=== PATIENT | female | born 1950 | race Caucasian/White ===

== ENCOUNTER 2017-10-11 12:17 | Emergency (ER) | payer OTHER, MEDICARE ==
--- NOTE | 2017-10-11 12:48 | EDPHY ---
H & P Smoking Status: Never smoked <Rika Cortés S - Last Filed: 10/11/17 14:55> <Jose Antonio Pennington E - Last Filed: 10/11/17 16:39> Time Seen by Provider: 10/11/17 12:36 HPI/ROS: CHIEF COMPLAINT: Bilateral leg pain and swelling HISTORY OF PRESENT ILLNESS: Patient is a 67-year-old female with a history of asthma, pneumonia and diverticulitis who presents emergency department with bilateral leg swelling and pain. Patient was diagnosed with diverticulitis 2 weeks ago while in [place]. She is currently moving from [place] back to [place]. She was started on Levaquin and Flagyl. She been taking this as directed tell she was seen by her primary care physician last Monday. She is complaining of mild abdominal discomfort. The Levaquin was discontinued and she was started on ciprofloxacin. She states that she did not tolerate this ciprofloxacin well. She had increased abdominal discomfort and bloating. She discontinue the medicines on Monday after 10 day course. Patient states that she developed bilateral feet and leg swelling last night. She states they are still mildly swollen but much improved. She has aches in both for upper extremities and both for legs. She reports having following neuropathy but this feels different. She has no chest pain or shortness of breath. No history of cardiac disease. No fevers or chills. No other rash. No discomfort in her mouth or pharynx. No visual change. REVIEW OF SYSTEMS: My complete review of systems is negative except as mentioned in the HPI. ( Rika Cortés) Past Medical/Surgical History: Includes asthma, pneumonia, diverticulitis (Rika Cortés S) Physical Exam: 37.2, 131/74, 77, 91% on room air GENERAL: Well-appearing, in no acute distress, alert. HEENT: Eyes normal to inspection, normal pharynx, no signs of dehydration. NECK: [No thyromegaly, no lymphadenopathy, supple. RESPIRATORY: Clear to auscultation bilaterally, no rales, rhonchi or wheezing. Normal CVS: Regular rate and rhythm, no rubs, murmurs, or gallops. Normal ABDOMEN: Soft, nontender, nondistended, no organomegaly. Benign BACK: Normal to inspection, no CVA tenderness. SKIN: Normal color, no rash, warm, dry. No pallor. EXTREMITIES: Mild bilateral pedal edema, diffuse lower extremity tenderness, no Homans sign or cords, no joint swelling. NEURO/PSYCH: Alert and oriented, normal mood and affect, normal motor sensory exam. (Rika Cortés S) Constitutional: Initial Vital Signs Temperature (C) 37.2 C 10/11/17 12:27 Heart Rate 77 10/11/17 12:27 Respiratory Rate 18 10/11/17 12:27 Blood Pressure 131/74 H 10/11/17 12:27 O2 Sat (%) 91 L 10/11/17 12:27 O2 Delivery Mode Nasal Cannula O2 (L/minute) 2 Allergies/Adverse Reactions: Penicillins Allergy (Intermediate, Verified 06/21/15 08:49) rash hives codeine [Codeine] Adverse Reaction (Intermediate, Verified 06/21/15 08:49) nausea oxycodone HCl [From Percocet] Adverse Reaction (Intermediate, Verified 06/21/15 08:49) nausea Home Medications: Medication Instructions Recorded Spiriva Inhaler (RX) 02/24/14 Dulera 100 Mcg/5 Mcg Inhaler 06/26/14 Proair Hfa Icu (RX) 06/26/14 Bentyl 10 MG (*) 10/11/17 Flagyl 10/11/17 Levofloxacin 10/11/17 Zofran 10/11/17 Medical Decision Making <MooRika S - Last Filed: 10/11/17 14:55> - Diagnostics Imaging: Discussed imaging studies w/ train caller Radiologist <Jose Antonio Pennington E - Last Filed: 10/11/17 16:39> - Diagnostics Imaging Results: Imaging Impressions Chest X-Ray 10/11/17 12:44 Impression: Hyperexpanded lungs consistent with COPD. Extremity Venous Study 10/11/17 14:52 Impression: No deep venous thrombosis in the right and left lower extremity. These findings were communicated by secured text message with Dr. Jose Antonio Pennington at 16:06 hour, 10/11/2017. ED Course/Re-evaluation: In the emergency department I discussed possible etiologies with the patient. I answered all her questions. IV was placed. Laboratory studies were obtained. Patient had EKG and chest x-ray ordered. Because the patient had recent travel from [place] ultrasound of her bilateral lower extremities was ordered. EKG shows normal sinus rhythm, normal rate, normal axis, normal intervals. There are no ST or T-wave abnormalities. EKG is normal as interpreted by me. The patient's CBC and chemistry unremarkable. Troponin and BNP were negative. 14 50: I rechecked the patient. She was lying comfortably in the bed. She had no new swelling of her lower extremities. 1500: Patient is signed out at change of shift to Dr. Pennington. Patient is awaiting ultrasound of her bilateral lower extremities. If her ultrasound is negative, I recommend the patient be discharged. Patient is aware the plan. I answered all her questions. She will follow up with primary care physician. ( Rika Cortés) 4:15 p.m. the patient is feeling well. Her leg exam is normal to me. She is ambulating. She has some dryness and peeling to her feet which she thinks is related to the swelling she had will taking Cipro. She also states that she had been in the sun in [place] and may be from that. She appears slightly dehydrated. We offered fluids but she prefers to go home and take p.o. Fluids. She declines any further treatment or testing. We discussed indications for returning. Patient did have a slightly low oxygen anyone point Emergency Department. She states that she is prescribed oxygen to wear while in [place] but does not need a while she is in [place]. She does not feel short of breath. She denies chest pain. (Jose Antonio Pennington) Differential Diagnosis: My differential includes but is not limited to DVT, CHF, medication reaction, Luciano-Freddy syndrome, neuropathy, cellulitis, arterial occlusion I feel is unlikely the patient has bilateral lower extremity DVT simultaneously. However, ultrasound is pending. The patient will follow up with the primary care physician to re-evaluate her abdomen after she has been off of her antibiotics. This could be secondary to antibiotic reaction. There is also possibility she could have resistant C diff infection. At this time she does not apparently ill or toxic. Her abdomen is completely benign. ( Rika Cortés) - Data Points Laboratory Results: Laboratory Results 10/11/17 13:25 10/11/17 13:25 10/11/17 10/11/17 10/11/17 14:54 13:25 13:25 WBC 8.24 10^3/uL 10^3/uL (3.80-9.50) RBC 4.99 10^6/uL 10^6/uL (4.18-5.33) Hgb 11.8 g/dL L g/dL (12.6-16.3) Hct 37.1 % L % (38.0-47.0) MCV 74.3 fL L fL (81.5-99.8) MCH 23.6 pg L pg (27.9-34.1) MCHC 31.8 g/dL L g/dL (32.4-36.7) RDW 15.9 % H % (11.5-15.2) Plt Count 486 10^3/uL H 10^3/uL (150-400) MPV 11.1 fL fL (8.7-11.7) Neut % (Auto) 56.6 % % (39.3-74.2) Lymph % (Auto) 27.2 % % (15.0-45.0) [place] % (Auto) 12.9 % % (4.5-13.0) Eos % (Auto) 1.9 % % (0.6-7.6) Baso % (Auto) 1.0 % % (0.3-1.7) Nucleat RBC Rel Count 0.2 % % (0.0-0.2) Absolute Neuts (auto) 4.67 10^3/uL 10^3/uL (1.70-6.50) Absolute Lymphs (auto) 2.24 10^3/uL 10^3/uL (1.00-3.00) Absolute Monos (auto) 1.06 10^3/uL H 10^3/uL (0.30-0.80) Absolute Eos (auto) 0.16 10^3/uL 10^3/uL (0.03-0.40) Absolute Basos (auto) 0.08 10^3/uL 10^3/uL (0.02-0.10) Absolute Nucleated RBC 0.02 10^3/uL H 10^3/uL (0-0.01) Immature Gran % 0.4 % % (0.0-1.1) Immature Gran # 0.03 10^3/uL 10^3/uL (0.00-0.10) Sodium 144 mEq/L mEq/L (135-145) Potassium 4.0 mEq/L mEq/L (3.5-5.2) Chloride 103 mEq/L mEq/L (97-110) Carbon Dioxide 30 mEq/l mEq/l (22-31) Anion Gap 11 mEq/L mEq/L (8-16) BUN 11 mg/dL mg/dL (7-23) Creatinine 0.6 mg/dL mg/dL (0.6-1.0) Estimated GFR > 60 Glucose 82 mg/dL mg/dL (70-100) Calcium 9.1 mg/dL mg/dL (8.5-10.4) Total Bilirubin 0.5 mg/dL mg/dL (0.1-1.4) Conjugated Bilirubin 0.4 mg/dL mg/dL (0.0-0.5) Unconjugated Bilirubin 0.1 mg/dL mg/dL (0.0-1.1) AST 38 IU/L IU/L (14-46) ALT 33 IU/L IU/L (9-52) Alkaline Phosphatase 101 IU/L IU/L (38-126) Troponin I < 0.012 ng/mL ng/mL (0.000-0.034) NT-Pro-B Natriuret Pep 332 pg/mL H pg/mL (0-125) Total Protein 6.8 g/dL g/dL (6.3-8.2) Albumin 3.7 g/dL g/dL (3.5-5.0) Lipase 119 IU/L IU/L (23-300) Urine Color DANYELLE Urine Appearance TURBID Urine pH 7.0 (5.0-7.5) Ur Specific [place] 1.015 (1.002-1.030) Urine Protein NEGATIVE (NEGATIVE) Urine Ketones TRACE H (NEGATIVE) Urine Blood NEGATIVE (NEGATIVE) Urine Nitrate NEGATIVE (NEGATIVE) Urine Bilirubin NEGATIVE (NEGATIVE) Urine Urobilinogen 2.0 EU H EU (0.2-1.0) Ur Leukocyte Esterase NEGATIVE (NEGATIVE) Urine RBC NONE SEEN /hpf /hpf (0-3) Urine WBC 1-3 /hpf /hpf (0-3) Ur Epithelial Cells TRACE /lpf /lpf (NONE-1+) Amorphous Sediment PRESENT /hpf /hpf (NONE-1+) Urine Mucus TRACE /lpf /lpf (NONE-1+) Urine Glucose NEGATIVE (NEGATIVE) Departure <Rika Cortés S - Last Filed: 10/11/17 14:55> <Jose Antonio Pennington E - Last Filed: 10/11/17 16:39> - Departure Disposition: Home, Routine, Self-Care Clinical Impression: Bilateral lower extremity pain Condition: Good Instructions: Leg Edema (ED) Additional Instructions: You need close follow-up with your primary care physician. Return with increasing abdominal pain, recurrent diarrhea or vomiting, fever or any other concerns. Referrals: Connie Guzmán MD [Primary Care Provider] - 2-3 days without fail
--- NOTE | 2017-10-11 13:13 | CPEKG ---
Heart Rate: 70 RR Interval: 857 P-R Interval: 132 QRSD Interval: 96 QT Interval: 404 QTC Interval: 436 P [place]: 59 QRS [place]: 57 T Wave [place]: 58 EKG Severity - NORMAL ECG - EKG Impression: SINUS RHYTHM Electronically Signed By: Rika Cortés 11-Oct-2017 15:02:02
[2017-10-11 13:38] LABS: PLATELET COUNT 486 10^3/uL (150-400)
[2017-10-11] MEDS ORDERED: ACETAMINOPHEN 325 MG TAB PO ONE (16:37)
[2017-10-11 16:45] VITALS: BP 132/75
== END 2017-10-11 16:45 | disposition home or self-care (01) ==
DX: M79.604 Pain in right leg (principal); M79.605 Pain in left leg; J45.909 Unspecified asthma, uncomplicated

== ENCOUNTER → 2017-11-09 | Outpatient (CLI) | payer OTHER, MEDICARE ==
[~2017-11-09] MED LIST: IOPAMIDOL (ISOVUE-300) 100 ML BTL ONE
== END ==
LOC: CIMAGING 11:03
PROVIDERS: ATTEND Physician Assistant
DX: K57.32 Diverticulitis of large intestine without perforation or abscess without bleeding (principal); K59.00 Constipation, unspecified; K76.89 Other specified diseases of liver; I70.0 Atherosclerosis of aorta; M51.36 Other intervertebral disc degeneration, lumbar region; M48.061 Spinal stenosis, lumbar region without neurogenic claudication
CPT/HCPCS: 74177; Q9967

== ENCOUNTER → 2018-05-18 | Outpatient (CLI) | payer OTHER, MEDICARE | LOC: BHFA 09:15 | PROVIDERS: ATTEND Internal Medicine Cardiovascular Disease | DX: R06.09 Other forms of dyspnea (principal); R00.2 Palpitations ==

== ENCOUNTER 2018-07-27 19:29 | Emergency (ER) | payer OTHER, MEDICARE ==
[2018-07-27 19:46] VITALS: BP 145/84
--- NOTE | 2018-07-27 19:50 | EDPHY ---
H & P Stated Complaint: cough,shortness of breath for 2 days Time Seen by Provider: 07/27/18 19:38 HPI/ROS: 67-year-old female with a history of asthma, presents today with cough and is requesting steroids. She states she has her inhalers and has a nebulizer at home but feels she needs a round of steroids to help improve this current cough. She received a dose of medication for eosinophilia today No fevers or chills, no sputum Review of systems As per HPI General no fever no chills no weakness HEENT no eye pain no eye discharge. No eye redness, no sore throat Respiratory positive cough, no shortness of breath Cardiac no chest pain, no peripheral edema GI no abdominal pain, no diarrhea, no constipation, no nausea, no vomiting no flank pain, no hematuria, no dysuria Musculoskeletal no myalgias, no joint pain Heme no easy bruising, no easy bleeding Endo no polyuria, no polydipsia Skin no rashes, no pruritus Neuro no syncope, no dizziness, no headaches Psych is no suicidal ideation, no homicidal ideation Source: Patient Exam Limitations: No limitations - Personal History Current Tetanus Diphtheria and Acellular Pertussis (TDAP): Unsure - Medical/Surgical History Hx Asthma: Yes Hx Chronic Respiratory Disease: No Hx Diabetes: No Hx Cardiac Disease: No Hx Renal Disease: No Hx Cirrhosis: No Hx Alcoholism: No Hx HIV/AIDS: No Hx Splenectomy or Spleen Trauma: No Other PMH: asthma, pneumonia, divertululitis, bronchitis,splenectomy - Family History Significant Family History: No pertinent family hx - Social History Smoking Status: Never smoked Alcohol Use: None Drug Use: None - Physical Exam Exam: 67-year-old female alert and oriented no acute distress nontoxic appearance, no respiratory distress no tachypnea Bronchospastic cough is present HEENT atraumatic normocephalic, extraocular muscles intact, anicteric Oropharynx negative for erythema negative exudate, tolerating her own secretions Neck supple no meningismus Lungs scattered wheeze Heart regular rate and rhythm without murmur rub or gallop Abdomen nondistended normoactive bowel sounds soft nontender Back no CVA tenderness, no step-offs, no spinal tenderness Extremities no cyanosis clubbing or edema Neuro alert and oriented, no focal deficits Constitutional: Initial Vital Signs Temperature (C) 37.2 C 07/27/18 19:40 Heart Rate 90 07/27/18 19:40 Respiratory Rate 20 07/27/18 19:40 Blood Pressure 145/84 H 07/27/18 19:40 O2 Sat (%) 93 07/27/18 19:40 O2 Delivery Mode Room Air Allergies/Adverse Reactions: Penicillins Allergy (Intermediate, Verified 07/27/18 19:39) rash hives codeine [Codeine] Adverse Reaction (Intermediate, Verified 07/27/18 19:39) nausea oxycodone HCl [From Percocet] Adverse Reaction (Intermediate, Verified 07/27/18 19:39) nausea Home Medications: Medication Instructions Recorded Spiriva Inhaler (RX) 02/24/14 Dulera 100 Mcg/5 Mcg Inhaler 06/26/14 Proair Hfa Icu (RX) 06/26/14 predniSONE 40 mg PO DAILY 5 Days #10 tab 07/27/18 Medical Decision Making ED Course/Re-evaluation: Patient seen and evaluated for cough, with extensive history asthma. Patient with scattered wheeze however saturation is good and there is symmetrical air movement. Patient currently refusing a breathing treatment states she is able to do that at home and requesting steroids. She appears stable a bronchospastic cough and this seems like a reasonable choice. Impression Asthma exacerbation Plan Prednisone 60 mg p.o. In ED Prednisone Rx for a burst of 40 mg q.day x5 days Follow-up with hat cleaner and/or primary care Differential Diagnosis: Differential diagnosis considered but not limited to Asthma exacerbation, pneumonia, bronchitis, reactive airway disease, allergic reaction - Data Points Medications Given: Discontinued Medications Prednisone (Prednisone) 60 mg PO EDNOW ONE Stop: 07/27/18 19:56 Last Admin: 07/27/18 20:00 Dose: 60 mg Departure - Departure Disposition: Home, Routine, Self-Care Clinical Impression: Asthmatic bronchitis Condition: Good Instructions: Asthma (ED) Referrals: Judy Hogan MD [Primary Care Provider] - As per Instructions Prescriptions: predniSONE 40 mg PO DAILY 5 Days #10 tab
[2018-07-27] MEDS ORDERED: predniSONE 20 MG TAB PO ONE (19:55)
== END 2018-07-27 20:05 | disposition home or self-care (01) ==
LOC: CED 19:29
DX: J45.901 Unspecified asthma with (acute) exacerbation (principal)
CPT/HCPCS: 99283; J7512

== ENCOUNTER → 2018-07-30 | Outpatient (CLI) | payer OTHER, MEDICARE | LOC: CIMAGING 12:43 | PROVIDERS: ATTEND Physician Assistant | DX: R05 Cough (principal); J45.909 Unspecified asthma, uncomplicated; R91.8 Other nonspecific abnormal finding of lung field | CPT/HCPCS: 71046-PO ==

== ENCOUNTER 2018-08-07 11:50 | Inpatient (IN) | payer OTHER, MEDICARE ==
--- NOTE | 2018-08-07 12:10 | EDPHY ---
H & P Stated Complaint: sob/asthma + rsv 2 wks now with bilat leg pain Time Seen by Provider: 08/07/18 12:10 - Personal History Current Tetanus Diphtheria and Acellular Pertussis (TDAP): Unsure - Medical/Surgical History Hx Asthma: Yes Hx Chronic Respiratory Disease: No Hx Diabetes: No Hx Cardiac Disease: No Hx Renal Disease: No Hx Cirrhosis: No Hx Alcoholism: No Hx HIV/AIDS: No Hx Splenectomy or Spleen Trauma: Yes Other PMH: asthma, pneumonia, divertululitis, bronchitis,splenectomy - Social History Smoking Status: Never smoked Constitutional: Initial Vital Signs Temperature (C) 36.6 C 08/07/18 11:57 Heart Rate 97 08/07/18 11:57 Respiratory Rate 19 08/07/18 11:57 Blood Pressure 138/74 H 08/07/18 11:57 O2 Sat (%) 93 08/07/18 11:57 O2 Delivery Mode Room Air O2 (L/minute) 2 Allergies/Adverse Reactions: Penicillins Allergy (Intermediate, Verified 08/07/18 11:56) rash hives codeine [Codeine] Adverse Reaction (Intermediate, Verified 08/07/18 11:56) nausea oxycodone HCl [From Percocet] Adverse Reaction (Intermediate, Verified 08/07/18 11:56) nausea Home Medications: Medication Instructions Recorded Spiriva Inhaler (RX) 02/24/14 Dulera 100 Mcg/5 Mcg Inhaler 06/26/14 Proair Hfa Icu (RX) 06/26/14 predniSONE 40 mg PO DAILY 5 Days #10 tab 07/27/18 Cefuroxime 08/07/18 Medical Decision Making - Diagnostics Imaging: Discussed imaging studies w/ call center coordinator Radiologist, I viewed and interpreted images myself ED Course/Re-evaluation: CHIEF COMPLAINT: Dyspnea, cough HISTORY OF PRESENT ILLNESS: The patient is a 67 y/o female with a history of asthma who was recently diagnosed with RSV and returns today complaining of persistent cough and dyspnea. She has felt ill for 3 weeks with significant exertional dyspnea and cough. She was evaluated in the ED here on 07/27/18, 1.5 weeks ago, requesting steroids for her cough. She declined other treatment at that time. She saw her tick sewer at [facility] last week for a routine follow up and was diagnosed with RSV. She also had a positive d-dimer and her doctor recommended admission due to this, which she declined. She is currently being treated with steroids, inhalers, home O2, and a cephalosporin. She was not previously on home O2. She also complains of her her legs and feet feeling, "like they're 10 times the size" and painful. She denies leg swelling and this pain is not worse when walking. REVIEW OF SYSTEMS: A comprehensive 10 system review of systems is otherwise negative aside from elements mentioned in the history of present illness and medical decision making. PHYSICAL EXAM: HR, BP, O2 Sat, RR. Temp noted General Appearance: Alert, well hydrated, appropriate, and non-toxic appearing. Head: Atraumatic without scalp tenderness or obvious injury Eyes: Pupils equal, round, reactive to light and accommodation, EOMI, no trauma , no injection. Nose: Atraumatic, no rhinorrhea, clear. Throat: There is no erythema or exudates, no lesions, normal tonsils, mucus membranes moist. Neck: Supple, nontender, no lymphadenopathy. Respiratory: No retractions, no distress, no wheezes, and no accessory muscle use. Lungs are clear to auscultation bilaterally. Cardiovascular: Regular rate and rhythm, no murmurs, rubs, or gallops. Good capillary refill all extremities. Gastrointestinal: Abdomen is soft, nontender, non-distended, no masses, no rebound, no guarding, no peritoneal signs. Musculoskeletal: Normal active ROM of all extremities, atraumatic. Neurological: Alert, appropriate, and interactive. The patient has non-focal cranial nerves, motor, sensory, and cerebellar exam. Skin: No rashes, good turgor, no nodules on palpation. Past medical history: asthma, pneumonia, diverticulitis, bronchitis Past surgical history: splenectomy Family history: Noncontributory Social history: Lives in [place], retired, . DIAGNOSTICS/PROCEDURES/CRITICAL CARE TIME: Chest CTA: Right middle and right lower lobe PEs. DIFFERENTIAL DIAGNOSIS: The differential diagnosis for the patient's shortness of breath and hypoxemia included but was not limited to pneumonia, myocardial infarction, acute mountain sickness, high altitude pulmonary edema, congestive heart failure, and pulmonary embolus. MEDICAL DECISION MAKING: This is a 67 y/o female with a history of asthma and recently diagnosed RSV who presents with a 3-week history of exertional dyspnea and cough. Outpatient d- dimer last week was elevated, but she declined to be admitted for further work up on this. She is not hypoxemic or febrile here. Her lungs are clear on auscultation. 95% SpO2 on 2LPM. Plan for IV, labs, chest CTA, and duo neb. CTA shows multiple right-sided PEs. 100mg SC Lovenox ordered. Plan for admission. - Data Points Laboratory Results: Laboratory Results 08/07/18 12:21 08/07/18 12:21 08/07/18 08/07/18 08/07/18 12:29 12:21 12:21 WBC 15.69 10^3/uL H 10^3/uL (3.80-9.50) RBC 5.51 10^6/uL H 10^6/uL (4.18-5.33) Hgb 13.2 g/dL g/dL (12.6-16.3) POC Hgb 15.0 gm/dL gm/dL (12.6-16.3) Hct 41.3 % % (38.0-47.0) POC Hct 44 % % (38-47) MCV 75.0 fL L fL (81.5-99.8) MCH 24.0 pg L pg (27.9-34.1) MCHC 32.0 g/dL L g/dL (32.4-36.7) RDW 15.9 % H % (11.5-15.2) Plt Count 504 10^3/uL H 10^3/uL (150-400) MPV 10.7 fL fL (8.7-11.7) Neut % (Auto) 60.1 % % (39.3-74.2) Lymph % (Auto) 28.0 % % (15.0-45.0) [place] % (Auto) 10.5 % % (4.5-13.0) Eos % (Auto) 0.0 % L % (0.6-7.6) Baso % (Auto) 0.3 % % (0.3-1.7) Nucleat RBC Rel Count 0.2 % % (0.0-0.2) Absolute Neuts (auto) 9.43 10^3/uL H 10^3/uL (1.70-6.50) Absolute Lymphs (auto) 4.39 10^3/uL H 10^3/uL (1.00-3.00) Absolute Monos (auto) 1.65 10^3/uL H 10^3/uL (0.30-0.80) Absolute Eos (auto) 0.00 10^3/uL L 10^3/uL (0.03-0.40) Absolute Basos (auto) 0.05 10^3/uL 10^3/uL (0.02-0.10) Absolute Nucleated RBC 0.03 10^3/uL H 10^3/uL (0-0.01) Immature Gran % 1.1 % % (0.0-1.1) Immature Gran # 0.17 10^3/uL H 10^3/uL (0.00-0.10) RBC/WBC/PLT Morphology TNP Platelet Estimate TNP POC Sodium 140 mEq/L mEq/L (135-145) Sodium 137 mEq/L mEq/L (135-145) POC Potassium 3.7 mEq/L mEq/L (3.3-5.0) Potassium 4.1 mEq/L mEq/L (3.5-5.2) POC Chloride 103 mEq/L mEq/L (97-110) Chloride 102 mEq/L mEq/L (97-110) Carbon Dioxide 26 mEq/l mEq/l (22-31) POC Total CO2 28 mEq/L mEq/L (22-31) Anion Gap 9 mEq/L mEq/L (6-14) POC BUN 16 mg/dL mg/dL (7-23) BUN 19 mg/dL mg/dL (7-23) Creatinine 0.7 mg/dL mg/dL (0.6-1.0) POC Creatinine 0.6 mg/dL mg/dL (0.6-1.0) Estimated GFR > 60 Glucose 83 mg/dL mg/dL (70-100) POC Glucose 83 mg/dL mg/dL (70-100) Calcium 9.7 mg/dL mg/dL (8.5-10.4) NT-Pro-B Natriuret Pep 164 pg/mL H pg/mL (0-125) Medications Given: Discontinued Medications Albuterol/Ipratropium (Duoneb) 3 ml IH EDNOW ONE Stop: 08/07/18 12:30 Last Admin: 02/26/19 12:32 Dose: 3 ml Point of Care Test Results: Chemistry 08/07/18 12:29 POC Sodium 140 mEq/L mEq/L (135-145) POC Potassium 3.7 mEq/L mEq/L (3.3-5.0) POC Chloride 103 mEq/L mEq/L (97-110) POC Total CO2 28 mEq/L mEq/L (22-31) POC BUN 16 mg/dL mg/dL (7-23) POC Creatinine 0.6 mg/dL mg/dL (0.6-1.0) POC Glucose 83 mg/dL mg/dL (70-100) ISTAT H&H 08/07/18 12:29 POC Hgb 15.0 gm/dL gm/dL (12.6-16.3) POC Hct 44 % % (38-47) Departure - Departure Disposition: [facility] Inpatient Acute Clinical Impression: Hypoxemia, RSV infection Pulmonary embolism Qualifiers: Pulmonary embolism type: unspecified Chronicity: acute Acute cor pulmonale presence: without acute cor pulmonale Qualified Code(s): I26.99 - Other pulmonary embolism without acute cor pulmonale Condition: Fair Referrals: Judy Hogan MD [Primary Care Provider] - As per Instructions Report Scribed for: Sergio Ferris Report Scribed by: Graciela Wheeler Date of Report: 08/07/18 Time of Report: 12:21
[2018-08-07] MEDS ORDERED: IPRATROPIUM/ALBUTEROL 3 ML DEYVIAL IH ONE (12:29)
[2018-08-07 12:36] LABS: PLATELET COUNT 504 10^3/uL (150-400)
[2018-08-07] MEDS ORDERED: IOPAMIDOL (ISOVUE 370) 100 ML BTL IV ONE (12:44)
[2018-08-07] MEDS ORDERED: ENOXAPARIN 80 MG/0.8 ML SYR SC ONE (13:32)
[2018-08-07] MEDS: ENOXAPARIN 80 MG/0.8 ML SYR SC ONE ×2 (14:37→14:39)
[2018-08-07] MEDS ORDERED: ONDANSETRON DISINTEGRATING 4 MG TAB PO PRN (15:23)
[2018-08-07] MEDS ORDERED: ONDANSETRON 4 MG/2 ML VIAL IVP PRN (15:23)
[2018-08-07] MEDS ORDERED: TIOTROPIUM INHALER 18 MCG/DOSE 5 DOSE/MDI IH PRN (15:26)
[2018-08-07] MEDS ORDERED: traMADol 50 MG TAB PO PRN (15:39)
--- NOTE | 2018-08-07 16:25 | PDGENHP ---
<Priya Lynch - Last Filed: 08/07/18 17:58> History and Physical - Chief Complaint Dyspnea, cough - History of Present Illness HPI: 67 y/o female with hx of PFO, uterine cancer stage II, and asthma presents to the ED with 3 weeks worth of worsening shortness of breath and cough. She initially presented here in the ED on 07/27/18 wanting steroids for her cough and declined any other treatment at that time. Quickly after, she followed up with her feed mill manager at [facility] for routine and was diagnosed with RSV and also had a positive D-Dimer but she declined admission into a hospital at that time. She typically doesn't wear oxygen during the day - only at nighttime which is set to 2.5LNC however d/t her condition, has required 24/7 oxygen use, steroids, and inhalers. She c/o bilateral lower extremity (from her mid-scanlon down to her feet) pain and the sensation that they are swollen but they are not. Walking helps the pain. She does have hx of neuropathy but did not tolerate gabapentin or pregablin. Chest CTA reveals small volme of PE in the right middle and right lower lobe. She is being admitted for treatment of her pulmonary embolisms and monitoring. History Information - Allergies/Home Medication List Allergies/Adverse Reactions: codeine [Codeine] Allergy (Intermediate, Verified 08/07/18 14:31) nausea oxycodone HCl [From Percocet] Allergy (Intermediate, Verified 08/07/18 14:31) nausea Penicillins Allergy (Intermediate, Verified 08/07/18 11:56) rash hives Home Medications: Tiotropium Inhaler [Spiriva Inhaler] 1 inh IH DAILY PRN 02/24/14 [Last Taken Unknown] Albuterol [Proventil Inhaler HFA (*)] 2 puffs IH BID 06/26/14 [Last Taken ] Mometasone/Formoterol [Dulera 200 Mcg/5 Mcg Inhaler] 2 puffs IH BID 06/26/14 [ Last Taken 08/07/18] Cefuroxime Axetil [Cefuroxime] 500 mg PO BID 08/07/18 [Last Taken 08/06/18 21:00 ] Herbals/Supplements -Info Only 1 each PO DAILY 08/07/18 [Last Taken Unknown] Multivitamins [Multivitamin (*)] 1 each PO DAILY 08/07/18 [Last Taken Unknown] Pravastatin Sodium [Pravachol] 10 mg PO HS 08/07/18 [Last Taken 08/06/18] Vitamin B Complex [Vitamin B Complex (OTC)] 1 each PO DAILY 08/07/18 [Last Taken Unknown] I have personally reviewed and updated: family history, medical history, social history, surgical history - Past Medical History asthma, cancer (Uterine cancer Stage II (1998)), pneumonia Additional medical history: Diverticulitis, brochitis, eosinophillia, PFO - Surgical History Reports: hysterectomy Additional surgical history: Splenectomy - Family History Positive for: cancer Additional family history: Father, sister, mother - DVTs, PEs - Social History Smoking Status: Never smoked Alcohol Use: None Drug Use: None Review of Systems Review of Systems: ROS: 10pt was reviewed & negative except for what was stated in HPI & below Physical Exam Physical Exam: Lab data and imaging were reviewed. Case discussed with admitting physician, Dr. Reji Rapp Chest CTA: see HPI Temp Pulse Resp BP Pulse Ox 37.2 C 85 18 142/91 H 98 08/07/18 15:45 08/07/18 15:45 08/07/18 15:45 08/07/18 15:45 08/07/18 15:45 O2 (L/minute) 3 Constitutional: no apparent distress, appears nourished, not in pain Eyes: PERRL, anicteric sclera, EOMI Ears, Nose, Mouth, Throat: moist mucous membranes, hearing normal, ears appear normal, no oral mucosal ulcers Cardiovascular: regular rate and rhythym, no murmur, rub, or gallop, tachycardia Peripheral Pulses: 2+: dorsalis-pedis (R) (Radial 2+), dorsalis-pedis (L) ( Radial 2+) Respiratory: no respiratory distress, no rales or rhonchi, clear to auscultation Gastrointestinal: normoactive bowel sounds, no palpable masses, tenderness ( Mild in all quadrants) Genitourinary: no bladder fullness, no bladder tenderness Skin: warm, normal color, no rashes or abrasions, no fluctuance, no induration, No mottled Musculoskeletal: full muscle strength, no muscle tenderness, normal joint ROM, no joint effusions Neurologic: AAOx3, sensation intact bilaterally, numbness (BLE), CN II-XII Intact Psychiatric: interacting appropriately, not anxious, not encephalopathic, thought process linear Lymph, Heme, Immunologic: no cervical LAD, no supraclavicular LAD Lab Data & Imaging Review 08/07/18 12:21 08/07/18 12:21 WBC 15.69 10^3/uL (3.80-9.50) H 08/07/18 12:21 RBC 5.51 10^6/uL (4.18-5.33) H 08/07/18 12:21 Hgb 13.2 g/dL (12.6-16.3) 08/07/18 12:21 POC Hgb 15.0 gm/dL (12.6-16.3) 08/07/18 12:29 Hct 41.3 % (38.0-47.0) 08/07/18 12:21 POC Hct 44 % (38-47) 08/07/18 12:29 MCV 75.0 fL (81.5-99.8) L 08/07/18 12:21 MCH 24.0 pg (27.9-34.1) L 08/07/18 12:21 MCHC 32.0 g/dL (32.4-36.7) L 08/07/18 12:21 RDW 15.9 % (11.5-15.2) H 08/07/18 12:21 Plt Count 504 10^3/uL (150-400) H 08/07/18 12:21 MPV 10.7 fL (8.7-11.7) 08/07/18 12:21 Neut % (Auto) 60.1 % (39.3-74.2) 08/07/18 12:21 Lymph % (Auto) 28.0 % (15.0-45.0) 08/07/18 12:21 [place] % (Auto) 10.5 % (4.5-13.0) 08/07/18 12:21 Eos % (Auto) 0.0 % (0.6-7.6) L 08/07/18 12:21 Baso % (Auto) 0.3 % (0.3-1.7) 08/07/18 12:21 Nucleat RBC Rel Count 0.2 % (0.0-0.2) 08/07/18 12:21 Absolute Neuts (auto) 9.43 10^3/uL (1.70-6.50) H 08/07/18 12:21 Absolute Lymphs (auto) 4.39 10^3/uL (1.00-3.00) H 08/07/18 12:21 Absolute Monos (auto) 1.65 10^3/uL (0.30-0.80) H 08/07/18 12:21 Absolute Eos (auto) 0.00 10^3/uL (0.03-0.40) L 08/07/18 12:21 Absolute Basos (auto) 0.05 10^3/uL (0.02-0.10) 08/07/18 12:21 Absolute Nucleated RBC 0.03 10^3/uL (0-0.01) H 08/07/18 12:21 Immature Gran % 1.1 % (0.0-1.1) 08/07/18 12:21 Immature Gran # 0.17 10^3/uL (0.00-0.10) H 08/07/18 12:21 RBC/WBC/PLT Morphology TNP 08/07/18 12:21 Platelet Estimate TNP 08/07/18 12:21 POC Sodium 140 mEq/L (135-145) 08/07/18 12:29 Sodium 137 mEq/L (135-145) 08/07/18 12:21 POC Potassium 3.7 mEq/L (3.3-5.0) 08/07/18 12:29 Potassium 4.1 mEq/L (3.5-5.2) 08/07/18 12:21 POC Chloride 103 mEq/L (97-110) 08/07/18 12:29 Chloride 102 mEq/L (97-110) 08/07/18 12:21 Carbon Dioxide 26 mEq/l (22-31) 08/07/18 12:21 POC Total CO2 28 mEq/L (22-31) 08/07/18 12:29 Anion Gap 9 mEq/L (6-14) 08/07/18 12:21 POC BUN 16 mg/dL (7-23) 08/07/18 12:29 BUN 19 mg/dL (7-23) 08/07/18 12:21 Creatinine 0.7 mg/dL (0.6-1.0) 08/07/18 12:21 POC Creatinine 0.6 mg/dL (0.6-1.0) 08/07/18 12:29 Estimated GFR > 60 08/07/18 12:21 Glucose 83 mg/dL (70-100) 08/07/18 12:21 POC Glucose 83 mg/dL (70-100) 08/07/18 12:29 Calcium 9.7 mg/dL (8.5-10.4) 08/07/18 12:21 NT-Pro-B Natriuret Pep 164 pg/mL (0-125) H 08/07/18 12:21 Assessment & Plan Plan: 67 y/o female with hx of PFO, uterine cancer stage II, and asthma presents with 3 weeks worth of worsening shortness of breath and cough. Outpatient testing revealed she had RSV and was given abx for this by her feed mill manager as well as an elevated d-dimer however at the time of discovery, she didn't want to be admitted to the hospital. She now presents with worsening shortness of breath and would like treatment. 1. Acute hypoxemic respiratory failure 2/2 pulmonary embolisms and RSV -Cont oxygen supplementation; attempt to wean off in AM. She typically wears oxygen @ HS. -Holding any further PO abx tx for RSV -Lovenox subQ given in ED; will resume Lovenox subq BID for therapeutic tx. Transition to PO AC in AM. -Cont tele/pulse ox monitoring 2. Pulmonary embolisms: see above. Risk factors include but not limited to hx of cancer, PFO, family hx 3. URI: RSV. No tx however complicates her condition. Treat symptoms conservatively. 4. Cough: Tesslan Pearles PRN 5. Asthma: cont home inhalers 6. Eosinophilia: receives monthly biologic immunosuppressant injections. Last one was a week before Monday. Medication name: Siria. 7. Neuropathy: reportedly does not tolerate gabapentin nor pregabalin. She has tried tramadol w/some relief. Tramadol PRN. OT to treat. Diet: Regular VTE ppx: Lovenox subq BID Code: Full Dispo: Admit to obs <Reji Rapp - Last Filed: 08/08/18 07:24> History and Physical - History of Present Illness Review of Systems Review of Systems: Physical Exam Physical Exam: Temp Pulse Resp BP Pulse Ox 36.9 C 70 18 114/78 98 08/08/18 04:00 08/08/18 04:00 08/08/18 04:00 08/08/18 04:00 08/08/18 04:00 O2 (L/minute) 2 Lab Data & Imaging Review 08/08/18 05:00 08/08/18 05:00 WBC 13.58 10^3/uL (3.80-9.50) H 08/08/18 05:00 RBC 5.19 10^6/uL (4.18-5.33) 08/08/18 05:00 Hgb 12.2 g/dL (12.6-16.3) L 08/08/18 05:00 POC Hgb 15.0 gm/dL (12.6-16.3) 08/07/18 12:29 Hct 38.9 % (38.0-47.0) 08/08/18 05:00 POC Hct 44 % (38-47) 08/07/18 12:29 MCV 75.0 fL (81.5-99.8) L 08/08/18 05:00 MCH 23.5 pg (27.9-34.1) L 08/08/18 05:00 MCHC 31.4 g/dL (32.4-36.7) L 08/08/18 05:00 RDW 15.7 % (11.5-15.2) H 08/08/18 05:00 Plt Count 477 10^3/uL (150-400) H 08/08/18 05:00 MPV 10.4 fL (8.7-11.7) 08/08/18 05:00 Neut % (Auto) 57.7 % (39.3-74.2) 08/08/18 05:00 Lymph % (Auto) 31.1 % (15.0-45.0) 08/08/18 05:00 [place] % (Auto) 9.7 % (4.5-13.0) 08/08/18 05:00 Eos % (Auto) 0.0 % (0.6-7.6) L 08/08/18 05:00 Baso % (Auto) 0.3 % (0.3-1.7) 08/08/18 05:00 Nucleat RBC Rel Count 0.1 % (0.0-0.2) 08/08/18 05:00 Absolute Neuts (auto) 7.84 10^3/uL (1.70-6.50) H 08/08/18 05:00 Absolute Lymphs (auto) 4.22 10^3/uL (1.00-3.00) H 08/08/18 05:00 Absolute Monos (auto) 1.32 10^3/uL (0.30-0.80) H 08/08/18 05:00 Absolute Eos (auto) 0.00 10^3/uL (0.03-0.40) L 08/08/18 05:00 Absolute Basos (auto) 0.04 10^3/uL (0.02-0.10) 08/08/18 05:00 Absolute Nucleated RBC 0.02 10^3/uL (0-0.01) H 08/08/18 05:00 Immature Gran % 1.2 % (0.0-1.1) H 08/08/18 05:00 Immature Gran # 0.16 10^3/uL (0.00-0.10) H 08/08/18 05:00 RBC/WBC/PLT Morphology TNP 08/07/18 12:21 Platelet Estimate TNP 08/07/18 12:21 POC Sodium 140 mEq/L (135-145) 08/07/18 12:29 Sodium 136 mEq/L (135-145) 08/08/18 05:00 POC Potassium 3.7 mEq/L (3.3-5.0) 08/07/18 12:29 Potassium 4.5 mEq/L (3.5-5.2) 08/08/18 05:00 POC Chloride 103 mEq/L (97-110) 08/07/18 12:29 Chloride 103 mEq/L (97-110) 08/08/18 05:00 Carbon Dioxide 28 mEq/l (22-31) 08/08/18 05:00 POC Total CO2 28 mEq/L (22-31) 08/07/18 12:29 Anion Gap 5 mEq/L (6-14) L 08/08/18 05:00 POC BUN 16 mg/dL (7-23) 08/07/18 12:29 BUN 20 mg/dL (7-23) 08/08/18 05:00 Creatinine 0.6 mg/dL (0.6-1.0) 08/08/18 05:00 POC Creatinine 0.6 mg/dL (0.6-1.0) 08/07/18 12:29 Estimated GFR > 60 08/08/18 05:00 Glucose 89 mg/dL (70-100) 08/08/18 05:00 POC Glucose 83 mg/dL (70-100) 08/07/18 12:29 Calcium 9.2 mg/dL (8.5-10.4) 08/08/18 05:00 NT-Pro-B Natriuret Pep 164 pg/mL (0-125) H 08/07/18 12:21 Assessment & Plan Assessment: patient is a very pleasant 67 year old female who presented with shortness of breath and hypoxia and found to have PE on CTA. examination is benign, labs unremarkable and vitals are WNL. plan to start lovenox with transition to oral anticoagulant after obtaining TTE in am. Other issues per Mariella Lynch NP.
[2018-08-07] MEDS ORDERED: ALBUTEROL 60 PUFFS/8 GM MDI IH ONE (17:36)
[2018-08-07] MEDS ORDERED: ALBUTEROL 3 ML DEYVIAL ONE (17:43)
[2018-08-07] MEDS ORDERED: BENZONATATE 100 MG CAP PO PRN (17:49)
[2018-08-07] MEDS: ALBUTEROL 3 ML DEYVIAL IH PRN ×2 (17:55→21:18)
[2018-08-07] MEDS: PRAVASTATIN SODIUM 10 MG TAB PO SCH (21:05)
[2018-08-07] MEDS: Mometasone/Formoterol [Dulera 200 Mcg/5 Mcg Inhaler] 2 PUFFS IH SCH (21:18)
[2018-08-07] MEDS: ALBUTEROL 60 PUFFS/8 GM MDI IH SCH (21:25)
[2018-08-07] MEDS: ENOXAPARIN 80 MG/0.8 ML SYR SC SCH (22:32)
[2018-08-08 05:19] LABS: PLATELET COUNT 477 10^3/uL (150-400)
[2018-08-08] MEDS: VITAMIN B COMPLEX 1 EA CAP/TAB PO SCH (08:52)
[2018-08-08] MEDS: ENOXAPARIN 80 MG/0.8 ML SYR SC SCH ×2 (08:52→20:13)
[2018-08-08] MEDS: MULTIVITAMINS 1 EACH TAB PO SCH (08:52)
[2018-08-08] MEDS: ALBUTEROL 3 ML DEYVIAL IH PRN ×2 (09:59→21:34)
[2018-08-08] MEDS: Mometasone/Formoterol [Dulera 200 Mcg/5 Mcg Inhaler] 2 PUFFS IH SCH ×2 (09:59→21:34)
[2018-08-08] MEDS: ALBUTEROL 60 PUFFS/8 GM MDI IH SCH ×2 (10:01→21:39)
[2018-08-08] MEDS ORDERED: methylPREDNISolone SOD SUCC 125 MG/2 ML VIAL IVP ONE (12:29)
--- NOTE | 2018-08-08 12:36 | HOSPPROG ---
Hospitalist Progress Note Assessment/Plan: #Asthma Exacerbation triggered by recent RSV -This is primarily causing her resp symptoms -no e/o pneumonia -will start steroids. Has failed outpatient dose steroids/burst. -scheduled/prn bronchodilator #RML and RLL small volume P.E. -no e/o of right strain -likely not responsible for her resp issues -Cont Lovenox. Can transition to Eliquis soon #Bilateral lower extremity pain -no edema -obtain LE ultrasound for r/o DVT #Leukocytosis, likely reactive #Hx of uterine cancer/ s/p hysterectomy, this was many years ago. No constitutional symptoms #Nocturnal Hypoxemia, 2 Liters at night is her baseline #Family hx of VTE, no known hx of clotting disorder Plan: per above change to inpatient Subjective: still with cough and sob. no leg swelling. + leg pain bilaterally. no cp or tachycardia Objective: Vital Signs Temp Pulse Resp BP Pulse Ox 37.1 C 91 20 137/69 H 94 08/08/18 11:44 08/08/18 11:44 08/08/18 11:44 08/08/18 11:44 08/08/18 11:44 Laboratory Results 08/08/18 05:00 08/08/18 05:00 08/07/18 08/08/18 08/09/18 05:59 05:59 05:59 Output Total 950 Balance -950 - Physical Exam Constitutional: no apparent distress Eyes: PERRL, EOMI Ears, Nose, Mouth, Throat: moist mucous membranes, hearing normal Cardiovascular: regular rate and rhythym, No edema Respiratory: reduced air movement, expiratory wheeze Gastrointestinal: normoactive bowel sounds, soft, non-tender abdomen Skin: warm Musculoskeletal: full muscle strength Neurologic: AAOx3 Psychiatric: interacting appropriately, not anxious, not encephalopathic Lymph, Heme, Immunologic: No petechiae ICD10 Worksheet Patient Problems: Problems Problem Status Onset Hypoxemia Acute Pulmonary embolism Acute RSV infection Acute
[2018-08-08] MEDS: ACETAMINOPHEN 325 MG TAB PO PRN ×2 (13:25→17:40)
--- NOTE | 2018-08-08 16:35 | ASMTCMCOM ---
CM Note CM Note Notes: Pt is a 67 y/o female admitted for dyspnea and cough. Pt has uterine cancer stage II. Pt will most likely d/c independent when medically stable. No therapies ordered at this time. CM available for changes. Plan: Independent Date Signed: 08/08/2018 04:35 PM Electronically Signed By:DAHIANA Torres
[2018-08-08] MEDS: PRAVASTATIN SODIUM 10 MG TAB PO SCH (20:13)
[2018-08-08] MEDS: HYDROcodone/CPM TUSSIONEX 5 ML UDSYR PO PRN (20:18)
[2018-08-09 05:54] LABS: PLATELET COUNT 483 10^3/uL (150-400)
--- NOTE | 2018-08-09 07:05 | PDMN ---
Medical Necessity Medical necessity: Change to IP, as of 08/08/18, per MD & MCG M-60; los >2 mn for ongoing management of asthma exacerbation, PE & bilateral LE pain; requiring further monitoring, LE ultrasound, IV steroids & respiratory supportive care; comorbid advanced age, recent RSV, nocturnal hypoxemia
[2018-08-09] MEDS: Mometasone/Formoterol [Dulera 200 Mcg/5 Mcg Inhaler] 2 PUFFS IH SCH ×2 (09:04→20:08)
[2018-08-09] MEDS: ALBUTEROL 3 ML DEYVIAL IH PRN ×2 (09:04→20:08)
[2018-08-09] MEDS: ENOXAPARIN 80 MG/0.8 ML SYR SC SCH (09:25)
[2018-08-09] MEDS: MULTIVITAMINS 1 EACH TAB PO SCH (09:27)
[2018-08-09] MEDS: VITAMIN B COMPLEX 1 EA CAP/TAB PO SCH (09:28)
[2018-08-09] MEDS: ALBUTEROL 60 PUFFS/8 GM MDI IH SCH ×2 (09:44→20:23)
[2018-08-09] MEDS ORDERED: methylPREDNISolone SOD SUCC 125 MG/2 ML VIAL IVP ONE (15:10)
--- NOTE | 2018-08-09 15:18 | HOSPPROG ---
Hospitalist Progress Note Assessment/Plan: #Asthma Exacerbation triggered by recent RSV -This is primarily causing her resp symptoms -no e/o pneumonia -Received SoluMedrol yesterday and will get additional steroids today. Pt is requesting IV. Will transition to Prednisone on discharge and will need taper -scheduled/prn bronchodilator -will discuss with her Practicing Urologist, Dr John Davis at [facility] #RML and RLL small volume P.E. -no e/o of right strain -likely not responsible for her resp issues -Stop Lovenox, start Eliquis which is covered by her insurance -US negative for DVT #Bilateral lower extremity pain -no edema -no e/o DVT #Leukocytosis, likely reactive and now due to steroids #Hx of uterine cancer/ s/p hysterectomy, this was many years ago. No constitutional symptoms #Nocturnal Hypoxemia, 2 Liters at night is her baseline #Family hx of VTE, no known hx of clotting disorder Plan: cont inpatient additional steroids today change to Eliquis Subjective: overall improving. Has a cough, able to take deeper breaths. no cp. no leg swelling. Objective: Vital Signs Temp Pulse Resp BP Pulse Ox 36.8 C 89 20 136/74 H 92 08/09/18 11:04 08/09/18 11:04 08/09/18 11:04 08/09/18 11:04 08/09/18 11:04 Laboratory Results 08/09/18 05:03 - Physical Exam Constitutional: no apparent distress Eyes: PERRL, EOMI Ears, Nose, Mouth, Throat: moist mucous membranes, hearing normal Cardiovascular: regular rate and rhythym, No edema Respiratory: no respiratory distress, no rales or rhonchi, reduced air movement , rhonchi Gastrointestinal: normoactive bowel sounds, soft, non-tender abdomen Skin: warm Musculoskeletal: full muscle strength Neurologic: AAOx3 Psychiatric: interacting appropriately, not anxious, not encephalopathic Lymph, Heme, Immunologic: No petechiae ICD10 Worksheet Patient Problems: Problems Problem Status Onset Hypoxemia Acute Pulmonary embolism Acute RSV infection Acute
[2018-08-09] MEDS: APIXABAN 5 MG TAB PO SCH (20:57)
[2018-08-09] MEDS: HYDROcodone/CPM TUSSIONEX 5 ML UDSYR PO PRN (20:58)
[2018-08-09] MEDS: PRAVASTATIN SODIUM 10 MG TAB PO SCH (20:58)
[2018-08-10] MEDS ORDERED: ALBUTEROL 60 PUFFS/8 GM MDI IH PRN (06:30)
[2018-08-10 07:38] VITALS: BP 119/71
[2018-08-10] MEDS: VITAMIN B COMPLEX 1 EA CAP/TAB PO SCH (08:38)
[2018-08-10] MEDS: APIXABAN 5 MG TAB PO SCH (08:38)
[2018-08-10] MEDS: MULTIVITAMINS 1 EACH TAB PO SCH (08:38)
[2018-08-10] MEDS: Mometasone/Formoterol [Dulera 200 Mcg/5 Mcg Inhaler] 2 PUFFS IH SCH (08:39)
[2018-08-10] MEDS ORDERED: methylPREDNISolone SOD SUCC 125 MG/2 ML VIAL IVP SCH (09:00)
[2018-08-10] MEDS ORDERED: ALBUTEROL 3 ML DEYVIAL IH SCH (09:00)
--- NOTE | 2018-08-10 12:55 | PDDCSUM ---
Discharge Summary Discharge Summary: The patient is a 67 yo Female [address] sees Dr. Tyler Reese with pulmonology at [facility] who was admitted with increased work of breathing. She recently had RSV. She has a long hx of Asthma. She is chronically nocturnally on O2 but had been using it throughout the day on presentation. She was admitted. CTA was positive for small volume RML and RLL P.E with no e/o of right sided heart strain. She did not have e/o DVT and US was negative. It was more likely that her resp symptoms were due to an Asthma Exacerbation and she was treated accordingly with significant improvement. She is still intermittently on supplemental O2 during the day. she will be d/c with f/u with her final coat sprayer on Monday (4 days). She has been started on a steroid taper. For her VTE, she has been started on Eliquis. Further w/u and mgmt per her final coat sprayer DDX: #Asthma Exacerbation triggered by recent RSV -This is primarily causing her resp symptoms -no e/o pneumonia -Received SoluMedrol initially. will d/c on Prednisone taper -scheduled/prn bronchodilator #RML and RLL small volume P.E. -no e/o of right strain -likely not responsible for her resp issues -Stop Lovenox, started Eliquis which is covered by her insurance -US negative for DVT #Bilateral lower extremity pain -no edema -no e/o DVT #Leukocytosis, likely reactive and now due to steroids #Hx of uterine cancer/ s/p hysterectomy, this was many years ago. No constitutional symptoms #Nocturnal Hypoxemia, 2 Liters at night is her baseline #Family hx of VTE, no known hx of clotting disorder Exam: NAD AAOX3 RRR EXP WHEEZE, NORMAL WORK OF BREATHING S/ND/NT MEDS: SEE MED REC TOTAL TIME SPENT ON D/C IS 35 MINS
--- NOTE | 2018-08-14 12:17 | PQFORM ---
PHYSICIAN QUERY FORM Needs Your Response This query form is being sent to you to assure this patient record is coded properly. Please respond to the question below: QUARTZ CUTTER QUESTION: Dear Dr. Dillon, In reviewing this patients medical record, it is noted in the H&P the patient held the diagnosis of 'acute hypoxemic respiratory failure.' Patient presented to the ER with cough and dyspnea and later noted to be hypoxemic. Patient was started on oxygen supplement. Later patient was diagnosed with asthma exacerbation, which was attributed as the cause of the respiratory symptoms. After study, should the diagnosis of 'acute hypoxemic respiratory failure' be included in the Discharge Summary? x Yes No Other more appropriate diagnosis (please specify) Clinically unable to determine Thank you Christina Chowdhury, RESIDENT ASSISTANT HIM/Coding Dept. INSTRUCTIONS FOR RESPONSE: Answer question by clicking on the "Edit Document" button. Move cursor to area below the stars. When complete, hit "Save." Click on the "Sign" button, then click "Sign" again. Type in your PIN and hit "Enter." MTDD
== END 2018-08-10 16:02 | disposition home or self-care (01) | DRG 202 ==
LOC: F3E 15:41 → OBSVTOIN 08-08 16:29
PROVIDERS: ADMIT Internal Medicine; ATTEND Internal Medicine
DX: J45.901 Unspecified asthma with (acute) exacerbation (principal); I26.99 Other pulmonary embolism without acute cor pulmonale; J96.01 Acute respiratory failure with hypoxia; B97.4 Respiratory syncytial virus as the cause of diseases classified elsewhere; D72.1 Eosinophilia; G62.9 Polyneuropathy, unspecified; Z85.42 Personal history of malignant neoplasm of other parts of uterus; Z90.710 Acquired absence of both cervix and uterus
CPT/HCPCS: 82435-PO; 82565-PO; 82947-PO; 84132-PO; 84295-PO; 84520-PO; 85014-ER; 96374; G0378; J1650; J2930; J7613; Q9967

== ENCOUNTER 2018-08-14 23:34 | Emergency (ER) | payer OTHER, MEDICARE ==
[2018-08-14 23:39] VITALS: BP 145/85
--- NOTE | 2018-08-15 00:14 | EDPHY ---
H & P Stated Complaint: DC'd monday for PE, used light therapy, legs now "turning blue " Time Seen by Provider: 08/14/18 23:49 HPI/ROS: Chief Complaint: Legs blue HPI: 68-year-old woman who was recently diagnosed with bilateral PEs. She was discharged on hospital 5 days ago. She did not have a DVT on ultrasound. Tonight she is presenting complaining of concerns that her legs are turning blue. She says she got home today in use and ultraviolet light on her legs for her chronic neuropathy. She did notice that her upper thighs or legs and tops of her feet turned blue. No pain. No fevers or chills. No swelling. No shortness of breath. ROS: 10 systems were reviewed and were negative except those elements noted in the HPI. PMH: DVT, asthma, neuropathy Social History: No smoking, no alcohol, no recreational drug use Family History: non-contributory Physical Exam: Gen: Awake, Alert, No Distress HEENT: Nose: no rhinorrhea Eyes: PERRLA, EOMI Mouth: Moist mucosa Neck: Supple, no JVD Chest: nontender, lungs clear to auscultation Heart: S1, S2 normal, no murmur Abd: Soft, non-tender, no guarding Back: no CVA tenderness, no midline tenderness Ext: no edema, non-tender, bilateral lower extremities have a dusky blue tinge to them, primarily on the thighs and the dorsums of the feet. Capillary refills less than 2 sec. She has bounding dorsalis pedis and posterior tibial pulses. She has decreased sensations bilaterally secondary to her chronic neuropathy. Calves are not swollen. There is no erythema. Not warm to touch. Skin: no rash Neuro: CN II-XII intact, Sensation grossly intact, Strength 5/5 in bilateral upper and lower extremities - Personal History Current Tetanus/Diphtheria Vaccine: Unsure Current Tetanus Diphtheria and Acellular Pertussis (TDAP): Unsure - Medical/Surgical History Hx Asthma: Yes Hx Chronic Respiratory Disease: No Hx Diabetes: No Hx Cardiac Disease: No Hx Renal Disease: No Hx Cirrhosis: No Hx Alcoholism: No Hx HIV/AIDS: No Hx Splenectomy or Spleen Trauma: Yes Other PMH: asthma, pneumonia, divertululitis, bronchitis,splenectomy - Social History Smoking Status: Never smoked Constitutional: Initial Vital Signs Temperature (C) 37.0 C 08/14/18 23:37 Heart Rate 82 08/14/18 23:37 Respiratory Rate 18 08/14/18 23:37 Blood Pressure 145/85 H 08/14/18 23:37 O2 Sat (%) 97 08/14/18 23:37 O2 Delivery Mode Room Air Allergies/Adverse Reactions: codeine [Codeine] Allergy (Intermediate, Verified 08/14/18 23:35) nausea oxycodone HCl [From Percocet] Allergy (Intermediate, Verified 08/14/18 23:35) nausea Penicillins Allergy (Intermediate, Verified 08/14/18 23:35) rash hives Home Medications: Medication Instructions Recorded Tiotropium Inhaler [Spiriva 1 inh IH DAILY PRN 02/24/14 Inhaler (RX)] Albuterol [Proventil Inhaler HFA 2 puffs IH BID 06/26/14 (*)] Mometasone/Formoterol [Dulera 200 2 puffs IH BID 06/26/14 Mcg/5 Mcg Inhaler] Herbals/Supplements -Info Only 1 each PO DAILY 08/07/18 Multivitamins [Multivitamin (*)] 1 each PO DAILY 08/07/18 Pravastatin Sodium [Pravachol] 10 mg PO HS 08/07/18 Vitamin B Complex [Vitamin B 1 each PO DAILY 08/07/18 Complex (OTC)] Apixaban [Eliquis] 5 mg PO BID #72 tab 08/10/18 predniSONE 60 mg PO DAILY #20 tab 08/10/18 Medical Decision Making ED Course/Re-evaluation: Using an alcohol wipe I was able to wipe off a purple the pigment off of her skin. Patient does not recall any new clothing. Says she has been wearing pajamas that she normally wears a were parasites earlier. No hose. Is not sure how she got the purple pigment under skin. Eyes able to easily remove it with an alcohol wipe. Remainder of her exam is unremarkable. She has been reassured will be discharged home. Departure - Departure Disposition: Home, Routine, Self-Care Clinical Impression: Normal exam Condition: Good Instructions: Normal Exam (ED) Additional Instructions: Follow up with primary care physician in about a week for any concerns. Referrals: Judy Hogan MD [Primary Care Provider] - As per Instructions
== END 2018-08-15 00:18 | disposition home or self-care (01) ==
DX: Z03.89 Encounter for observation for other suspected diseases and conditions ruled out (principal)
CPT/HCPCS: 36415-PO; 82607-90; G0472

== ENCOUNTER → 2018-09-14 | Outpatient (CLI) | payer OTHER, MEDICARE | LOC: BHFA 15:30 | PROVIDERS: ATTEND Internal Medicine Cardiovascular Disease | DX: M79.609 Pain in unspecified limb (principal) ==

== ENCOUNTER → 2018-09-26 | Outpatient (CLI) | payer OTHER, MEDICARE ==
[~2018-09-26] MED LIST changes: +IOPAMIDOL (ISOVUE 370) 100 ML BTL IV ONE; -IOPAMIDOL (ISOVUE-300) 100 ML BTL ONE
== END ==
LOC: EMCIMAGING 09-25 12:24
PROVIDERS: ATTEND Internal Medicine Cardiovascular Disease
DX: R68.89 Other general symptoms and signs (principal)
CPT/HCPCS: 75635; Q9967